=== PATIENT | male | born 1960 | race Caucasian/White ===

== ENCOUNTER 2023-01-10 07:25 | Day surgery (SDC) | payer BC ==
[~2023-01-10] VITALS: Ht 185.4 cm; Wt 105.1 kg
[~2023-01-10 07:25] MED LIST: ALLO300 PO; CVS GLUCOSAMIN1 EAC5 PO; KRILL OIL500 MG PO; [UNRECOGNIZED DRUG - OTHER] PO
== END 2023-01-10 09:33 | disposition home or self-care (01) ==
LOC: ORSCSDS 07:25
PROVIDERS: Internal Medicine Gastroenterology
PROC: 0DBP8ZX Excision of Rectum, Via Natural or Artificial Opening Endoscopic, Diagnostic (ICD-10-PCS; principal; 2023-01-10 08:30)
PROC: 0DBL8ZX Excision of Transverse Colon, Via Natural or Artificial Opening Endoscopic, Diagnostic (ICD-10-PCS; principal; 2023-01-10 08:30)
DX: Z12.11 Encounter for screening for malignant neoplasm of colon (principal); D12.3 Benign neoplasm of transverse colon; D12.8 Benign neoplasm of rectum
CPT/HCPCS: 88305; J2704; J7120